=== PATIENT | male | born 1985 | race Caucasian/White ===

== ENCOUNTER 2020-05-20 22:14 | Emergency (ER) | payer BC ==
[~2020-05-20] VITALS: Ht 177.8 cm; Wt 100.0 kg
[~2020-05-20 22:14] MED LIST: ADDERALL30 MG PO; ALL DAY ALLERGY10 MG PO; NEXIUM 40MG40 MG PO; RANITIDINE75 MG PO
[2020-05-20 22:22] VITALS: TEMP 98.4
[2020-05-20] MEDS ORDERED: CEPHALEXIN500 M1 PO (23:52)
[2020-05-21 00:13] VITALS: BP 140/85; PULSE 81
== END 2020-05-21 00:14 | disposition home or self-care (01) ==
LOC: COL.ER 22:14
DX: S61.511A Laceration without foreign body of right wrist, initial encounter (principal); S66.821A Laceration of other specified muscles, fascia and tendons at wrist and hand level, right hand, initial encounter; F90.9 Attention-deficit hyperactivity disorder, unspecified type; X58.XXXA Exposure to other specified factors, initial encounter

== ENCOUNTER 2020-08-06 11:00 | Outpatient (RCR) | payer BC ==
[~2020-08-06 11:00] MED LIST changes: +CEPHALEXIN500 M1 PO
== END 2020-08-10 | disposition home or self-care (01) ==
LOC: WSOT
DX: S61.511D Laceration without foreign body of right wrist, subsequent encounter (principal)

== ENCOUNTER 2020-09-30 11:30 | Outpatient (RCR) | payer BC | END 2020-10-28 15:20 | disposition home or self-care (01) | LOC: WSOT 11:30 | DX: S61.511D Laceration without foreign body of right wrist, subsequent encounter (principal) ==